=== PATIENT | female | born 1995 | race Caucasian/White ===

== ENCOUNTER 2016-10-27 18:47 | Emergency (ER) | payer MEDICARE, MEDICAID ==
[~2016-10-27] VITALS: Ht 175.3 cm; Wt 77.2 kg
[2016-10-27 18:56] VITALS: BP 109/73
[2016-10-27] MEDS ORDERED: KETOROLAC 30 MG/1 ML IM ONE (20:00)
[2016-10-27] MEDS ORDERED: CEFTRIAXONE 1,000 MG IM ONE (20:00)
[2016-10-27] MEDS ORDERED: LIDOCAINE 1%, 20ML ONE (20:32)
[2016-10-27] MEDS ORDERED: KETOROLAC 30 MG/1 ML ONE (20:32)
[2016-10-27] MEDS ORDERED: CEFTRIAXONE 1,000 MG ONE (20:32)
== END 2016-10-27 20:45 | disposition home or self-care (01) ==
LOC: ED 20:00
DX: O26.891 Other specified pregnancy related conditions, first trimester (principal); Z3A.11 11 weeks gestation of pregnancy; J02.0 Streptococcal pharyngitis
CPT/HCPCS: 87081; 87880; 96372; 99284; J0696; J1885

== ENCOUNTER 2017-03-29 20:19 | Outpatient (CLI) | payer MEDICARE, MEDICAID ==
[~2017-03-29] VITALS: Ht 167.6 cm; Wt 95.0 kg
[2017-03-29 20:48] LABS: DAU SCREEN DISCLAIMER
== END 2017-03-29 22:25 | disposition home or self-care (01) ==
LOC: LDOP 20:19
PROVIDERS: ATTEND Obstetrics & Gynecology
DX: O26.893 Other specified pregnancy related conditions, third trimester (principal); O62.9 Abnormality of forces of labor, unspecified; O99.513 Diseases of the respiratory system complicating pregnancy, third trimester; J45.909 Unspecified asthma, uncomplicated; R10.9 Unspecified abdominal pain; Z3A.31 31 weeks gestation of pregnancy
CPT/HCPCS: 59025; 80307; 81001; 87077; 87086; 87186; 99211; G0463; G0479

== ENCOUNTER 2017-11-25 19:12 | Emergency (ER) | payer MEDICARE, MEDICAID ==
[~2017-11-25] VITALS: Ht 167.6 cm; Wt 114.5 kg
[2017-11-25] MEDS ORDERED: KETOROLAC 30 MG/1 ML IM ONE (20:00)
[2017-11-25] MEDS ORDERED: KETOROLAC 30 MG/1 ML ONE (20:05)
[2017-11-25 20:16] VITALS: BP 119/79
== END 2017-11-25 20:19 | disposition home or self-care (01) ==
LOC: ED 20:13
DX: M25.561 Pain in right knee (principal)
CPT/HCPCS: 73564; 96372; 99284; J1885

== ENCOUNTER 2017-11-30 15:28 | Emergency (ER) | payer MEDICARE, MEDICAID ==
[~2017-11-30] VITALS: Ht 167.6 cm; Wt 114.5 kg
[2017-11-30 17:53] VITALS: BP 112/62
== END 2017-11-30 17:54 | disposition home or self-care (01) ==
LOC: ED 17:48
DX: J02.9 Acute pharyngitis, unspecified (principal); M54.9 Dorsalgia, unspecified; G89.29 Other chronic pain
CPT/HCPCS: 71046; 87081; 87880; 99285

== ENCOUNTER 2017-12-27 14:56 | Emergency (ER) | payer MEDICARE, MEDICAID ==
[~2017-12-27] VITALS: Ht 167.6 cm; Wt 111.0 kg
[2017-12-27 15:54] LABS: ALBUMIN 3.5 g/dL (3.4-5.0); ANION GAP 9 mmol/L (5-15); CALCIUM 8.5 mg/dL (8.5-10.1); CHLORIDE 107 mmol/L (98-107)
[2017-12-27 15:55] LABS: BASOPHILS # (AUTO) 0.03 x10^3/uL (0-0.1); BASOPHILS % (AUTO) 0 % (0-1); EOSINOPHILS # (AUTO) 0.05 x10^3/uL (0-0.4); EOSINOPHILS % (AUTO) 1 % (1-7); LYMPHOCYTES # (AUTO) 1.98 x10^3/uL (1-3.4); LYMPHOCYTES % (AUTO) 20 % (22-44); MD NO; MEAN CORPUSCULAR HGB CONC 33.7 g/dL (32.4-35.8); MEAN CORPUSCULAR VOLUME 89.1 fL (80-100); MEAN PLATELET VOLUME 8.2 fL (7.4-10.4); MONOCYTES # (AUTO) 0.55 x10^3/uL (0.2-0.8); MONOCYTES % (AUTO) 6 % (2-9); NEUTROPHILS # (AUTO) 7.12 x10^3/uL (1.8-6.8); NEUTROPHILS % (AUTO) 73 % (42-75); PLATELET COUNT 319 x10^3/uL (130-400); RED BLOOD COUNT 4.54 x10^6/uL (3.82-5.3); RED CELL DISTRIBUTION WIDTH 15.2 % (9.6-15.2)
[2017-12-27 16:01] LABS: ALANINE AMINOTRANSFERASE 26 U/L (12-78); ALKALINE PHOSPHATASE 82 U/L (45-117); BILIRUBIN,TOTAL 0.5 mg/dL (0.2-1.0); CREATININE 0.88 mg/dL (0.55-1.02); TOTAL PROTEIN 7.8 g/dL (6.4-8.2)
[2017-12-27 17:16] LABS: CULTURE INDICATED? YES; MICROSCOPIC INDICATED
[2017-12-27 17:32] VITALS: BP 107/58
== END 2017-12-27 17:34 | disposition home or self-care (01) ==
LOC: ED 17:16
DX: M25.571 Pain in right ankle and joints of right foot (principal); R10.84 Generalized abdominal pain
CPT/HCPCS: 36415; 80053; 81001; 83690; 84703; 85025; 87086; 99285

== ENCOUNTER 2018-06-20 10:20 | Emergency (ER) | payer MEDICAID ==
[~2018-06-20] VITALS: Ht 167.6 cm; Wt 100.9 kg
[2018-06-20] MEDS ORDERED: LURA20TA PO (11:57)
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
--- NOTE | 2018-06-20 11:59 | NUR ---
CALL LIGHT W/I REACH. SBAR RPT TO YAZMIN ANGELES
[2018-06-20 12:04] LABS: BASOPHILS # (AUTO) 0.02 x10^3/uL (0-0.1); BASOPHILS % (AUTO) 0 % (0-1); EOSINOPHILS # (AUTO) 0.02 x10^3/uL (0-0.4); EOSINOPHILS % (AUTO) 0 % (1-7); LYMPHOCYTES % (AUTO) 22 % (22-44); MD NO; MEAN CORPUSCULAR HEMOGLOBIN 31.3 pg (27.0-34.8); MEAN CORPUSCULAR HGB CONC 33.8 g/dL (32.4-35.8); MEAN CORPUSCULAR VOLUME 92.7 fL (80-100); MEAN PLATELET VOLUME 7.7 fL (7.4-10.4); MONOCYTES # (AUTO) 0.31 x10^3/uL (0.2-0.8); MONOCYTES % (AUTO) 5 % (2-9); NEUTROPHILS # (AUTO) 4.57 x10^3/uL (1.8-6.8); NEUTROPHILS % (AUTO) 72 % (42-75); PLATELET COUNT 252 x10^3/uL (130-400); RED BLOOD COUNT 3.68 x10^6/uL (3.82-5.3); RED CELL DISTRIBUTION WIDTH 13.8 % (9.6-15.2)
--- NOTE | 2018-06-20 12:04 | NUR ---
ASSUMED CARE OF PT, PT IS UNABLE TO PROVIDE UA. WOULD LIKE FLUIDS. PT WOULD NOT ATTEMPT TO GIVE UA UNTIL FLUIDS PROVIDED.
[2018-06-20 12:13] LABS: ALBUMIN 2.7 g/dL (3.4-5.0); ANION GAP 6 mmol/L (5-15); CALCIUM 8.4 mg/dL (8.5-10.1); CHLORIDE 108 mmol/L (98-107)
[2018-06-20 12:31] LABS: ALANINE AMINOTRANSFERASE 14 U/L (12-78); ALKALINE PHOSPHATASE 87 U/L (45-117); BILIRUBIN,TOTAL 0.4 mg/dL (0.2-1.0); CREATININE 0.62 mg/dL (0.55-1.02)
--- NOTE | 2018-06-20 12:58 | NUR ---
UA WALKED TO LAB
[2018-06-20 13:16] LABS: MICROSCOPIC AUTO
[2018-06-20 13:17] LABS: CULTURE INDICATED? YES
--- NOTE | 2018-06-20 14:06 | NUR ---
RHOGAM REQUESTED FROM RX.
[2018-06-20 14:32] VITALS: BP 134/84
--- NOTE | 2018-06-20 14:33 | NUR ---
Patient/Caregiver given discharge instructions and they have confirmed that they understand the instructions. Patient ambulatory with steady gait., PT TRANSPORTED TO LABOR AND DELIVER FOR OB CLEARANCE.
--- NOTE | 2018-06-20 14:33 | NUR ---
RHOGAM CHECKED WITH MANA ARCE
== END 2018-06-20 14:35 | disposition home or self-care (01) ==
LOC: ED 11:19
DX: O23.12 Infections of bladder in pregnancy, second trimester (principal); O99.512 Diseases of the respiratory system complicating pregnancy, second trimester; G89.29 Other chronic pain; E66.9 Obesity, unspecified; Z3A.20 20 weeks gestation of pregnancy
CPT/HCPCS: 36415; 71046; 80053; 81001; 83690; 84702; 85025; 85461; 86850; 86900; 87086; 93005; 99284; J2790

== ENCOUNTER 2018-06-20 14:44 | Outpatient (CLI) | payer MEDICAID ==
[~2018-06-20] VITALS: Ht 167.6 cm; Wt 104.2 kg
[~2018-06-20 14:44] MED LIST: LURA20TA PO
[2018-06-20 14:49] VITALS: BP 100/59
[2018-06-20 16:48] LABS: AMPHETAMINE SCREEN, URINE Positive (Negative); BARBITURATE SCREEN, URINE Negative (Negative); BENZODIAZEPINE SCREEN, URINE Negative (Negative); CANNABINOID SCREEN, URINE Negative (Negative); COCAINE SCREEN, URINE Negative (Negative); METHADONE SCREEN, URINE Negative (Negative); OPIATE SCREEN, URINE Negative (Negative)
== END 2018-06-20 17:15 | disposition home or self-care (01) ==
LOC: LDOP 14:44
PROVIDERS: ATTEND Obstetrics & Gynecology
DX: O32.1XX0 Maternal care for breech presentation, not applicable or unspecified (principal); O26.892 Other specified pregnancy related conditions, second trimester; R10.9 Unspecified abdominal pain; Z3A.25 25 weeks gestation of pregnancy
CPT/HCPCS: 36415; 59025; 76805; 80307; 82950; 99211; G0463

== ENCOUNTER 2018-08-09 06:08 | Outpatient (CLI) | payer MEDICAID ==
[~2018-08-09] VITALS: Ht 167.6 cm; Wt 104.5 kg
[~2018-08-09 06:08] MED LIST changes: +CIPR500T87 PO; +METR500T PO; +ONDA8TAB9 PO
[2018-08-09 07:09] LABS: AMPHETAMINE SCREEN, URINE Positive (Negative); BARBITURATE SCREEN, URINE Negative (Negative); BENZODIAZEPINE SCREEN, URINE Negative (Negative); CANNABINOID SCREEN, URINE Negative (Negative); COCAINE SCREEN, URINE Negative (Negative); METHADONE SCREEN, URINE Negative (Negative); OPIATE SCREEN, URINE Negative (Negative)
[2018-08-09 07:22] VITALS: BP 126/71
[2018-08-09 07:23] LABS: MICROSCOPIC INDICATED
[2018-08-09] MEDS ORDERED: NITR100C56 PO (08:23)
== END 2018-08-09 08:44 | disposition home or self-care (01) ==
LOC: LDOP 06:08
PROVIDERS: ATTEND Obstetrics & Gynecology Female Pelvic Medicine and Reconstructive Surgery
DX: O26.893 Other specified pregnancy related conditions, third trimester (principal); R10.9 Unspecified abdominal pain; M54.9 Dorsalgia, unspecified; Z3A.32 32 weeks gestation of pregnancy
CPT/HCPCS: 59025; 80307; 81001; 87086; 99211; G0463

== ENCOUNTER 2018-08-24 20:50 | Emergency (ER) | payer MEDICAID ==
[~2018-08-24] VITALS: Ht 170.2 cm; Wt 103.9 kg
[~2018-08-24 20:50] MED LIST changes: +NITR100C56 PO
--- NOTE | 2018-08-24 20:54 | NUR ---
NOT IN LOBBY WHEN CALLED FOR TRIAGE
[2018-08-24 20:55] VITALS: BP 117/79
--- NOTE | 2018-08-24 21:00 | NUR ---
KIER OPERATOR: L&D AWARE OF PT
--- NOTE | 2018-08-24 21:29 | NUR ---
L&D CALLED FOR FHT.
--- NOTE | 2018-08-24 21:40 | NUR ---
HR 140
== END 2018-08-24 22:57 | disposition home or self-care (01) ==
LOC: ED 22:43
DX: M25.561 Pain in right knee (principal); G40.909 Epilepsy, unspecified, not intractable, without status epilepticus; M54.9 Dorsalgia, unspecified; G89.29 Other chronic pain; Z87.891 Personal history of nicotine dependence
CPT/HCPCS: 99283

== ENCOUNTER 2018-09-23 22:59 | Inpatient (IN) | payer MEDICAID ==
[~2018-09-23] VITALS: Ht 167.6 cm; Wt 100.5 kg
[2018-09-23 23:08] VITALS: BP 122/73
[2018-09-23 23:24] LABS: AMPHETAMINE SCREEN, URINE Negative (Negative); BARBITURATE SCREEN, URINE Negative (Negative); BENZODIAZEPINE SCREEN, URINE Negative (Negative); CANNABINOID SCREEN, URINE Negative (Negative); COCAINE SCREEN, URINE Negative (Negative); METHADONE SCREEN, URINE Negative (Negative); OPIATE SCREEN, URINE Negative (Negative)
[2018-09-24] MEDS ORDERED: D5%-LACTATED RINGERS 1,000 ML IV SCH (00:38)
[2018-09-24] MEDS ORDERED: OXYTOCIN 30U/ 0.9% NaCL 500ML 500 ML IV ONE ×2 (00:38→01:16)
[2018-09-24] MEDS ORDERED: LIDOCAINE 1%, 20ML ONE (00:47)
[2018-09-24] MEDS ORDERED: SODIUM CHLORIDE FLUSH 10ML SYR IVF PRN (01:00)
[2018-09-24] MEDS ORDERED: ONDANSETRON 2MG/ML, 2ML IVPush PRN (01:00)
[2018-09-24] MEDS ORDERED: FENTANYL PF 100 MCG/2ML IVPush PRN (01:00)
[2018-09-24] MEDS ORDERED: CALCIUM CARBONATE 500 MG TAB.CHEW PO PRN ×2 (01:00→09:30)
[2018-09-24] MEDS ORDERED: SODIUM CITRATE/CITRIC ACID 15 ML UDC PO PRN (01:00)
[2018-09-24] MEDS ORDERED: ALUMINUM/MAG/SIMETHICONE 30 ML UDC PO PRN (01:00)
[2018-09-24] MEDS ORDERED: METOCLOPRAMIDE 5 MG/ML, 2ML IVPush PRN (01:00)
[2018-09-24] MEDS ORDERED: FENTANYL PF 100 MCG/2ML IV PRN (01:00)
[2018-09-24] MEDS ORDERED: FENTANYL/BUPIV./NS/PF 250 ML EPIDCONT SCH ×2 (01:22→04:25)
[2018-09-24 01:26] LABS: BASOPHILS # (AUTO) 0.03 x10^3/uL (0-0.1); BASOPHILS % (AUTO) 0 % (0-1); EOSINOPHILS # (AUTO) 0.01 x10^3/uL (0-0.4); EOSINOPHILS % (AUTO) 0 % (1-7); LYMPHOCYTES # (AUTO) 1.97 x10^3/uL (1-3.4); LYMPHOCYTES % (AUTO) 25 % (22-44); MD NO; MEAN CORPUSCULAR HEMOGLOBIN 29.4 pg (27.0-34.8); MEAN CORPUSCULAR HGB CONC 33.2 g/dL (32.4-35.8); MEAN CORPUSCULAR VOLUME 88.7 fL (80-100); MEAN PLATELET VOLUME 8.1 fL (7.4-10.4); MONOCYTES # (AUTO) 0.54 x10^3/uL (0.2-0.8); MONOCYTES % (AUTO) 7 % (2-9); NEUTROPHILS # (AUTO) 5.32 x10^3/uL (1.8-6.8); NEUTROPHILS % (AUTO) 68 % (42-75); PLATELET COUNT 247 x10^3/uL (130-400); RED BLOOD COUNT 3.44 x10^6/uL (3.82-5.3); RED CELL DISTRIBUTION WIDTH 14.3 % (9.6-15.2)
[2018-09-24] MEDS ORDERED: FENTANYL/BUPIV./NS/PF 0 ML EPIDCONT ONE (01:27)
[2018-09-24] MEDS ORDERED: BUPIVACAINE 0.25% ONE (01:51)
[2018-09-24] MEDS ORDERED: FENTANYL PF 500 MCG, BUPIVACAINE/PF 0.5%, 30ML 62.5 ML in SODIUM CHLORIDE 0.9% 177.5 ML EPIDCONT SCH (02:00)
[2018-09-24] MEDS: LACTATED RINGERS 1,000 ML IV SCH ×2 (02:05→08:09)
[2018-09-24 02:18] LABS: CLUE CELLS NONE SEEN (NONE SEEN); WET PREP WBCS NONE SEEN (FEW)
[2018-09-24] MEDS ORDERED: OXYTOCIN 30U/ 0.9% NaCL 500ML 500 ML ONE ×2 (03:23→11:12)
[2018-09-24] MEDS ORDERED: LACTATED RINGERS 1,000 ML IV SCH (04:25)
[2018-09-24] MEDS ORDERED: EPHEDRINE 50 MG/ML, 1ML IVPush PRN (04:30)
[2018-09-24] MEDS ORDERED: LACTATED RINGERS 1,000 ML IVBOLUS PRN (04:30)
[2018-09-24] MEDS ORDERED: MAGNESIUM HYDROXIDE 8%, 30ML UDC PO PRN (09:30)
[2018-09-24] MEDS ORDERED: METHYLERGONOVINE 0.2 MG/ML IM PRN (09:30)
[2018-09-24] MEDS ORDERED: ONDANSETRON 2MG/ML, 2ML IV PRN (09:30)
[2018-09-24] MEDS ORDERED: CARBOPROST TROMETHAMINE 250 MCG/ML, 1ML IM PRN (09:30)
[2018-09-24] MEDS ORDERED: OXYcodone/APAP 5/325MG TABLET PO PRN ×2 (09:30)
[2018-09-24] MEDS ORDERED: ACETAMINOPHEN 325 MG TABLET PO PRN ×3 (09:30)
[2018-09-24] MEDS ORDERED: MISOPROSTOL 200 MCG TABLET PR PRN (09:30)
[2018-09-24] MEDS ORDERED: DIPH,PERTUSS(ACELL),TET VAC/PF NC IM-VACC PRN (09:30)
[2018-09-24] MEDS ORDERED: GLYCERIN ADULT SUPP PR PRN (09:30)
[2018-09-24] MEDS ORDERED: BISACODYL 10 MG SUPP PR PRN (09:30)
[2018-09-24] MEDS ORDERED: RHOGAM FROM BLOOD BANK 1 NOTE EA IM/IV ONE (09:30)
[2018-09-24] MEDS ORDERED: METOCLOPRAMIDE 5 MG/ML, 2ML IV PRN (09:30)
[2018-09-24] MEDS ORDERED: MEASLES,MUMPS&RUBELLA VACC/PF 0.5 ML SQ-VACC PRN (09:30)
[2018-09-24] MEDS ORDERED: IBUPROFEN 600 MG TABLET ONE (09:45)
[2018-09-24] MEDS: IBUPROFEN 600 MG TABLET PO PRN (09:50)
[2018-09-24] MEDS: OXYTOCIN 30U/ 0.9% NaCL 500ML 500 ML IV SCH ×2 (11:16→19:07)
[2018-09-24 13:40] VITALS: BP 104/70
[2018-09-24 17:24] LABS: BASOPHILS # (AUTO) 0.02 x10^3/uL (0-0.1); BASOPHILS % (AUTO) 0 % (0-1); EOSINOPHILS # (AUTO) 0.01 x10^3/uL (0-0.4); EOSINOPHILS % (AUTO) 0 % (1-7); LYMPHOCYTES # (AUTO) 1.61 x10^3/uL (1-3.4); LYMPHOCYTES % (AUTO) 22 % (22-44); MD NO; MEAN CORPUSCULAR HEMOGLOBIN 30.3 pg (27.0-34.8); MEAN CORPUSCULAR HGB CONC 33.9 g/dL (32.4-35.8); MEAN CORPUSCULAR VOLUME 89.4 fL (80-100); MEAN PLATELET VOLUME 8.3 fL (7.4-10.4); MONOCYTES % (AUTO) 6 % (2-9); NEUTROPHILS % (AUTO) 72 % (42-75); PLATELET COUNT 196 x10^3/uL (130-400); RED BLOOD COUNT 3.14 x10^6/uL (3.82-5.3); RED CELL DISTRIBUTION WIDTH 14.2 % (9.6-15.2)
[2018-09-24 19:35] VITALS: BP 108/74
[2018-09-25] VITALS: BP_SYST 111; BP_SYST 112; BP_DIAS 75; BP_DIAS 78
[2018-09-25] MEDS: LACTATED RINGERS 1,000 ML IV SCH ×4 (01:16→20:00)
[2018-09-25] MEDS: OXYTOCIN 30U/ 0.9% NaCL 500ML 500 ML IV SCH ×3 (05:07→20:00)
[2018-09-25 05:45] VITALS: BP 112/73
[2018-09-25] MEDS: IBUPROFEN 600 MG TABLET PO PRN ×3 (06:04→22:23)
[2018-09-25] MEDS: DOCUSATE 100 MG CAPSULE PO PRN (07:49)
[2018-09-25] MEDS: PRENATAL VIT/IRON/FA 1 EACH TABLET PO SCH (07:49)
[2018-09-25 07:55] VITALS: BP 121/81
[2018-09-25 19:42] VITALS: BP 100/67
[2018-09-26 07:50] VITALS: BP 111/79
[2018-09-26] MEDS: PRENATAL VIT/IRON/FA 1 EACH TABLET PO SCH (08:25)
[2018-09-26] MEDS: DOCUSATE 100 MG CAPSULE PO PRN (08:25)
[2018-09-26] MEDS: LACTATED RINGERS 1,000 ML IV SCH (09:16)
[2018-09-26] MEDS: OXYTOCIN 30U/ 0.9% NaCL 500ML 500 ML IV SCH (10:00)
[2018-09-26] MEDS ORDERED: OXYC-302 PO (11:19)
[2018-09-26] MEDS ORDERED: IBUP-1222 PO (11:19)
== END 2018-09-26 16:15 | disposition home or self-care (01) | DRG 806 ==
LOC: LDOP 22:59 → LDIP 09-24 00:41 → 2NW 09-24 13:03
PROVIDERS: ADMIT Obstetrics & Gynecology; ATTEND Obstetrics & Gynecology
PROC: 10E0XZZ Delivery of Products of Conception, External Approach (ICD-10-PCS; principal; 2018-09-24)
PROC: 0KQM0ZZ Repair Perineum Muscle, Open Approach (ICD-10-PCS; 2018-09-24)
PROC: 3E0R3BZ Introduction of Anesthetic Agent into Spinal Canal, Percutaneous Approach (ICD-10-PCS; 2018-09-24)
PROC: 00HU33Z Insertion of Infusion Device into Spinal Canal, Percutaneous Approach (ICD-10-PCS; 2018-09-24)
DX: O98.32 Other infections with a predominantly sexual mode of transmission complicating childbirth (principal); O26.62 Liver and biliary tract disorders in childbirth; Z37.0 Single live birth; O98.12 Syphilis complicating childbirth; O69.81X0 Labor and delivery complicated by cord around neck, without compression, not applicable or unspecified; A59.9 Trichomoniasis, unspecified; D64.9 Anemia, unspecified; O70.1 Second degree perineal laceration during delivery; F31.9 Bipolar disorder, unspecified; F43.10 Post-traumatic stress disorder, unspecified; O99.344 Other mental disorders complicating childbirth; K75.9 Inflammatory liver disease, unspecified; O99.02 Anemia complicating childbirth; Z3A.39 39 weeks gestation of pregnancy; Z72.0 Tobacco use; Z88.0 Allergy status to penicillin
CPT/HCPCS: 36415; 87806; J2790; 80307; 82947; 85025; 85460; 85461; 86803; 86850; 86900; 87081; 87210; 87491; 87591; 87808; G0378; G0475; J2590; J7120

== ENCOUNTER 2019-01-20 07:44 | Emergency (ER) | payer MEDICAID, OTHER ==
[~2019-01-20] VITALS: Ht 167.6 cm; Wt 88.0 kg
[2019-01-20 10:25] VITALS: BP 118/60
== END 2019-01-20 10:31 | disposition home or self-care (01) ==
LOC: ED 10:29
DX: S92.355A Nondisplaced fracture of fifth metatarsal bone, left foot, initial encounter for closed fracture (principal); X50.1XXA Overexertion from prolonged static or awkward postures, initial encounter; Y93.89 Activity, other specified; Y92.410 Unspecified street and highway as the place of occurrence of the external cause; Y99.8 Other external cause status
CPT/HCPCS: 29515; 99283

== ENCOUNTER 2019-04-29 06:49 | Emergency (ER) | payer MEDICAID ==
[~2019-04-29] VITALS: Ht 167.6 cm; Wt 93.6 kg
[~2019-04-29 06:49] MED LIST changes: +IBUP-1222 PO; +OXYC-302 PO
[2019-04-29 06:51] VITALS: BP 117/66
--- NOTE | 2019-04-29 07:12 | NUR ---
PT STATES LESION ON LABIA. PA EVAL AND TO BE DISCHARGED.
== END 2019-04-29 07:23 | disposition home or self-care (01) ==
LOC: ED 07:17
DX: B00.1 Herpesviral vesicular dermatitis (principal); L73.9 Follicular disorder, unspecified; F17.210 Nicotine dependence, cigarettes, uncomplicated; E66.9 Obesity, unspecified
CPT/HCPCS: 99283

== ENCOUNTER 2019-07-10 17:24 | Emergency (ER) | payer MEDICAID ==
[~2019-07-10] VITALS: Ht 167.6 cm; Wt 84.0 kg
--- NOTE | 2019-07-10 17:37 | NUR ---
GASPER. REPORT RECEIVED FROM EMS. PT HAD SEIZURE WITNESSED BY BF. NO TRAUMA/HIT ON HEAD. 2 VERSED GIVEN MOTOR SETTER THEN PT'S AOX4. RESPS EVEN AND UNLABORED. ALL MONITORS IN PLACE. CALL LIGHT WITHIN REACH. EKG DONE AT BEDSIDE BY EMT AT THIS TIME.
--- NOTE | 2019-07-10 18:35 | NUR ---
PT STATES" I CA'T PEE NOW." PT AWARES OF UA. UA CUP IN ROOM.
[2019-07-10 18:57] LABS: ALBUMIN 3.4 g/dL (3.4-5.0); ANION GAP 4 mmol/L (5-15); CALCIUM 9.2 mg/dL (8.5-10.1); CHLORIDE 109 mmol/L (98-107); CREATININE 0.83 mg/dL (0.55-1.02)
--- NOTE | 2019-07-10 18:57 | NUR ---
REPORT GIVEN TO JESUS ARCE.
[2019-07-10] MEDS ORDERED: LORazepam 2 MG/ML, 1ML ONE (19:32)
--- NOTE | 2019-07-10 19:38 | NUR ---
FAMILY CAME OUT TO RN STATION C/O PT. HAVING ANOTHER SEZIURE. SMALL ROCKING MOVEMENTS NOTED. HR ELEVATED TO 125 FROM 80'S DURING SHIFT REPORT. DR. DARBY TO BS FOR EVAL. 1MG ATIVAN ADMIN PER DR. DARBY VERBAL ORDER. PT. RESPONSIVE AND LOOKS AT STAFF WHEN NAME IS CALLED; IMMEDIATLY PRIROR TO ATIVAN PT. STOPPED ROCKING AND HR DOWN TO 110'S. ALL MONITORS REMAIN IN PLACE. SEZIURE PRECAUTIONS REMAIN IN PLACE. ALL SAFETY MEASURES MAINTAINED.
[2019-07-10] MEDS ORDERED: LORazepam 2 MG/ML, 1ML IVPush ONE (20:00)
--- NOTE | 2019-07-10 20:27 | NUR ---
JENNIFER FREDERICK UA COLLECTED PT. HAS BEEN UNABLE TO PROVIDE SAMPLE. PT. DROWSY BUT ABLE TO COMMUNICATE WITH STAFF. FAMILY/FRIENDS AT FOR SUPPORT. ALL MONTIORS REMAIN IN PLACE. ALL SAFETY MEASURES OBSERVED.
[2019-07-10 20:49] LABS: HCG UR SG 1.024 (1.003-1.030); MICROSCOPIC NOT IND
[2019-07-10 20:52] LABS: CULTURE INDICATED? NO
[2019-07-10 21:00] LABS: AMPHETAMINE SCREEN, URINE Negative (Negative); BARBITURATE SCREEN, URINE Positive (Negative); BENZODIAZEPINE SCREEN, URINE Positive (Negative); COCAINE SCREEN, URINE Negative (Negative); METHADONE SCREEN, URINE Negative (Negative); OPIATE SCREEN, URINE Negative (Negative)
[2019-07-10 21:01] LABS: CANNABINOID SCREEN, URINE Positive (Negative)
[2019-07-10] MEDS ORDERED: SODIUM CHLORIDE 0.9% 1,000ML IVBOLUS ONE (21:30)
--- NOTE | 2019-07-10 21:30 | NUR ---
CT DELAY, LAB DRAW.
[2019-07-10 21:43] LABS: BASOPHILS # (AUTO) 0.01 x10^3/uL (0-0.1); BASOPHILS % (AUTO) 0 % (0-1); EOSINOPHILS # (AUTO) 0.01 x10^3/uL (0-0.4); EOSINOPHILS % (AUTO) 0 % (1-7); LYMPHOCYTES # (AUTO) 1.25 x10^3/uL (1-3.4); LYMPHOCYTES % (AUTO) 18 % (22-44); MD NO; MEAN CORPUSCULAR HEMOGLOBIN 29.8 pg (27.0-34.8); MEAN CORPUSCULAR HGB CONC 33.7 g/dL (32.4-35.8); MEAN CORPUSCULAR VOLUME 88.2 fL (80-100); MEAN PLATELET VOLUME 8.1 fL (7.4-10.4); MONOCYTES # (AUTO) 0.45 x10^3/uL (0.2-0.8); MONOCYTES % (AUTO) 6 % (2-9); NEUTROPHILS # (AUTO) 5.38 x10^3/uL (1.8-6.8); NEUTROPHILS % (AUTO) 76 % (42-75); PLATELET COUNT 262 x10^3/uL (130-400); RED CELL DISTRIBUTION WIDTH 14.4 % (9.6-15.2)
--- NOTE | 2019-07-10 22:02 | NUR ---
Pt awake, alert, and eating at bedside. IVF started.
[2019-07-10] MEDS ORDERED: ACETAMINOPHEN 500 MG TABLET PO ONE (22:30)
[2019-07-10] MEDS ORDERED: ACETAMINOPHEN 500 MG TABLET ONE (22:58)
[2019-07-10 23:09] VITALS: BP 103/65
== END 2019-07-10 23:21 | disposition home or self-care (01) ==
LOC: ED 18:31
DX: G40.909 Epilepsy, unspecified, not intractable, without status epilepticus (principal); R55 Syncope and collapse; Z88.0 Allergy status to penicillin
CPT/HCPCS: 36415; 70450; 80048; 80307; 81003; 81025; 82040; 83605; 85025; 87040; 93005; 96361; 96374; 99284; J2060; J7030

== ENCOUNTER 2019-07-22 11:45 | Emergency (ER) | payer MEDICAID ==
[~2019-07-22] VITALS: Ht 167.6 cm; Wt 80.0 kg
--- NOTE | 2019-07-22 11:47 | NUR ---
PATIENT BROUGHT IN BY [facility] FOR CHIEF COMPLAINT OF POSSIBLE WITNESSED SEIZURE. NO LOC REPORTED, NEURO STATUS INTACT. PT DENIES SOB, CP, N/V, RECENT TRAUMA.
[2019-07-22] MEDS ORDERED: LEVE500T53 PO (11:55)
[2019-07-22 12:37] LABS: BASOPHILS # (AUTO) 0.03 x10^3/uL (0-0.1); BASOPHILS % (AUTO) 0 % (0-1); EOSINOPHILS # (AUTO) 0.03 x10^3/uL (0-0.4); EOSINOPHILS % (AUTO) 0 % (1-7); LYMPHOCYTES # (AUTO) 2.15 x10^3/uL (1-3.4); LYMPHOCYTES % (AUTO) 26 % (22-44); MD NO; MEAN CORPUSCULAR HEMOGLOBIN 29.3 pg (27.0-34.8); MEAN CORPUSCULAR HGB CONC 33.2 g/dL (32.4-35.8); MEAN CORPUSCULAR VOLUME 88.2 fL (80-100); MEAN PLATELET VOLUME 7.4 fL (7.4-10.4); MONOCYTES % (AUTO) 5 % (2-9); NEUTROPHILS # (AUTO) 5.72 x10^3/uL (1.8-6.8); NEUTROPHILS % (AUTO) 69 % (42-75); PLATELET COUNT 338 x10^3/uL (130-400); RED BLOOD COUNT 4.53 x10^6/uL (3.82-5.3); RED CELL DISTRIBUTION WIDTH 13.7 % (9.6-15.2)
[2019-07-22 12:39] LABS: MICROSCOPIC INDICATED
[2019-07-22 12:41] LABS: CULTURE INDICATED? YES
[2019-07-22 12:46] LABS: ALBUMIN 3.2 g/dL (3.4-5.0); ANION GAP 7 mmol/L (5-15); CALCIUM 8.7 mg/dL (8.5-10.1); CHLORIDE 107 mmol/L (98-107)
[2019-07-22 12:51] LABS: ALANINE AMINOTRANSFERASE 19 U/L (12-78); ALKALINE PHOSPHATASE 86 U/L (45-117); BILIRUBIN,TOTAL 0.4 mg/dL (0.2-1.0); TOTAL PROTEIN 7.5 g/dL (6.4-8.2)
--- NOTE | 2019-07-22 13:02 | NUR ---
PT SHAKING, NOTIFIED DR. BARR
--- NOTE | 2019-07-22 13:02 | NUR ---
RECEIVED REPORT FROM ARNALDO PLAN OF CARE DISCUSSED
--- NOTE | 2019-07-22 13:04 | NUR ---
PT AWAKE, ANSWERING QUESTIONS APPROPRIATLY. SEIZURE PADS ON SIDE RAILS
--- NOTE | 2019-07-22 13:36 | NUR ---
Break RN: Provided minimal assist to BS commode. Back in bed after, cardiac, NIBP, SPO2 monitors & sz precautions IP.
[2019-07-22 14:02] VITALS: BP 118/75
--- NOTE | 2019-07-22 14:02 | NUR ---
Patient/Caregiver given discharge instructions and they have confirmed that they understand the instructions. Patient ambulatory with steady gait.
== END 2019-07-22 14:04 | disposition home or self-care (01) ==
LOC: ED 12:39
DX: G40.909 Epilepsy, unspecified, not intractable, without status epilepticus (principal); G89.29 Other chronic pain; J45.909 Unspecified asthma, uncomplicated; R51 Headache
CPT/HCPCS: 36415; 80053; 81001; 84703; 85025; 87086; 99283

== ENCOUNTER 2019-07-27 08:30 | Emergency (ER) | payer MEDICAID ==
[~2019-07-27] VITALS: Ht 167.6 cm; Wt 87.5 kg
[~2019-07-27 08:30] MED LIST changes: +LEVE500T53 PO
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
[2019-07-27 09:11] LABS: BASOPHILS # (AUTO) 0.03 x10^3/uL (0-0.1); BASOPHILS % (AUTO) 1 % (0-1); EOSINOPHILS # (AUTO) 0.03 x10^3/uL (0-0.4); EOSINOPHILS % (AUTO) 1 % (1-7); LYMPHOCYTES % (AUTO) 29 % (22-44); MD NO; MEAN CORPUSCULAR HEMOGLOBIN 29.7 pg (27.0-34.8); MEAN CORPUSCULAR HGB CONC 33.7 g/dL (32.4-35.8); MEAN CORPUSCULAR VOLUME 88.2 fL (80-100); MEAN PLATELET VOLUME 7.4 fL (7.4-10.4); MONOCYTES # (AUTO) 0.39 x10^3/uL (0.2-0.8); MONOCYTES % (AUTO) 8 % (2-9); NEUTROPHILS # (AUTO) 3.29 x10^3/uL (1.8-6.8); NEUTROPHILS % (AUTO) 63 % (42-75); PLATELET COUNT 268 x10^3/uL (130-400); RED BLOOD COUNT 4.34 x10^6/uL (3.82-5.3); RED CELL DISTRIBUTION WIDTH 13.5 % (9.6-15.2)
[2019-07-27 09:12] LABS: ANION GAP 4 mmol/L (5-15); CALCIUM 8.6 mg/dL (8.5-10.1); CHLORIDE 110 mmol/L (98-107)
[2019-07-27 10:20] VITALS: BP 99/65
== END 2019-07-27 10:28 | disposition home or self-care (01) ==
LOC: ED 09:20
DX: G40.309 Generalized idiopathic epilepsy and epileptic syndromes, not intractable, without status epilepticus (principal)
CPT/HCPCS: 36415; 80048; 84703; 85025; 93005; 99284

== ENCOUNTER 2019-07-28 20:07 | Emergency (ER) | payer MEDICAID ==
[~2019-07-28] VITALS: Ht 167.6 cm; Wt 85.0 kg
[2019-07-28 20:19] VITALS: BP 115/71
== END 2019-07-28 22:19 | disposition home or self-care (01) ==
LOC: ED 20:52
DX: J45.31 Mild persistent asthma with (acute) exacerbation (principal); G40.909 Epilepsy, unspecified, not intractable, without status epilepticus; G89.29 Other chronic pain; R06.02 Shortness of breath
CPT/HCPCS: 93005; 99283

== ENCOUNTER 2020-01-15 00:58 | Emergency (ER) | payer MEDICAID ==
[~2020-01-15] VITALS: Ht 167.6 cm; Wt 100.0 kg
--- NOTE | 2020-01-15 01:24 | NUR ---
PT SITTING IN BED, CONNECTED TO BP AND 02 MONITORS. NO SIGNS OF ACUTE DISTRESS. WILL CONTINUE TO MONITOR.
[2020-01-15 01:33] LABS: BASOPHILS # (AUTO) 0.03 x10^3/uL (0-0.1); BASOPHILS % (AUTO) 0 % (0-1); EOSINOPHILS # (AUTO) 0.01 x10^3/uL (0-0.4); EOSINOPHILS % (AUTO) 0 % (1-7); LYMPHOCYTES # (AUTO) 1.83 x10^3/uL (1-3.4); LYMPHOCYTES % (AUTO) 21 % (22-44); MD NO; MEAN PLATELET VOLUME 8.5 fL (7.4-10.4); MONOCYTES # (AUTO) 0.55 x10^3/uL (0.2-0.8); MONOCYTES % (AUTO) 6 % (2-9); NEUTROPHILS # (AUTO) 6.38 x10^3/uL (1.8-6.8); NEUTROPHILS % (AUTO) 72 % (42-75); PLATELET COUNT 235 x10^3/uL (130-400); RED BLOOD COUNT 4.41 x10^6/uL (3.82-5.3); RED CELL DISTRIBUTION WIDTH 14.3 % (9.6-15.2)
[2020-01-15 01:43] LABS: ALBUMIN 3.3 g/dL (3.4-5.0); ANION GAP 4 mmol/L (5-15); CALCIUM 8.1 mg/dL (8.5-10.1); CHLORIDE 112 mmol/L (98-107)
--- NOTE | 2020-01-15 02:07 | NUR ---
PT CONDITION UNCHANGED.
[2020-01-15] MEDS ORDERED: IBUPROFEN 800 MG TABLET ONE (02:37)
[2020-01-15 02:38] VITALS: BP 100/64
[2020-01-15] MEDS ORDERED: IBUPROFEN 800 MG TABLET PO ONE (03:00)
== END 2020-01-15 02:57 | disposition home or self-care (01) ==
LOC: ED 02:50
DX: M79.10 Myalgia, unspecified site (principal); R53.1 Weakness; R05 Cough; R07.89 Other chest pain; J45.909 Unspecified asthma, uncomplicated; G89.29 Other chronic pain; G40.909 Epilepsy, unspecified, not intractable, without status epilepticus; M17.10 Unilateral primary osteoarthritis, unspecified knee
CPT/HCPCS: 36415; 71045; 80048; 82040; 84703; 85025; 99284

== ENCOUNTER 2020-02-23 17:58 | Emergency (ER) | payer MEDICAID ==
[~2020-02-23] VITALS: Ht 167.6 cm; Wt 101.6 kg
[2020-02-23 18:42] LABS: ALANINE AMINOTRANSFERASE 14 U/L (12-78); ALBUMIN 3.4 g/dL (3.4-5.0); ANION GAP 5 mmol/L (5-15); CALCIUM 8.7 mg/dL (8.5-10.1); CHLORIDE 108 mmol/L (98-107); CREATININE 0.86 mg/dL (0.55-1.02)
[2020-02-23 18:45] LABS: BASOPHILS # (AUTO) 0.01 x10^3/uL (0-0.1); BASOPHILS % (AUTO) 0 % (0-1); EOSINOPHILS # (AUTO) 0.04 x10^3/uL (0-0.4); EOSINOPHILS % (AUTO) 1 % (1-7); LYMPHOCYTES % (AUTO) 31 % (22-44); MD NO; MEAN CORPUSCULAR HEMOGLOBIN 30.8 pg (27.0-34.8); MEAN CORPUSCULAR HGB CONC 33.2 g/dL (32.4-35.8); MEAN CORPUSCULAR VOLUME 92.8 fL (80-100); MEAN PLATELET VOLUME 7.6 fL (7.4-10.4); MONOCYTES % (AUTO) 6 % (2-9); NEUTROPHILS % (AUTO) 63 % (42-75); PLATELET COUNT 280 x10^3/uL (130-400); RED BLOOD COUNT 4.36 x10^6/uL (3.82-5.3); RED CELL DISTRIBUTION WIDTH 14.3 % (9.6-15.2)
[2020-02-23 18:46] LABS: ALKALINE PHOSPHATASE 91 U/L (45-117); BILIRUBIN,TOTAL 0.2 mg/dL (0.2-1.0); TOTAL PROTEIN 7.3 g/dL (6.4-8.2)
--- NOTE | 2020-02-23 19:06 | NUR ---
pt here for nausea, weak/dizzy/paleness started today no D/V. ua walked to lab, bloodwork pending. vss. call bailey. as
[2020-02-23 19:08] LABS: MICROSCOPIC INDICATED
[2020-02-23 19:24] VITALS: BP 118/83
== END 2020-02-23 20:38 | disposition home or self-care (01) ==
LOC: ED 18:43
DX: N39.0 Urinary tract infection, site not specified (principal); J45.909 Unspecified asthma, uncomplicated; G89.29 Other chronic pain
CPT/HCPCS: 36415; 80053; 81001; 84703; 85025; 99283

== ENCOUNTER 2020-04-27 23:52 | Emergency (ER) | payer SELFPAY ==
[~2020-04-27] VITALS: Ht 167.6 cm; Wt 107.6 kg
[2020-04-27 23:59] VITALS: BP 117/78
[2020-04-28] MEDS ORDERED: ACETAMINOPHEN 500 MG TABLET ONE (00:53)
[2020-04-28] MEDS ORDERED: ACETAMINOPHEN 500 MG TABLET PO ONE (01:00)
== END 2020-04-28 01:37 | disposition home or self-care (01) ==
LOC: ED 04-28 00:52
DX: M79.10 Myalgia, unspecified site (principal); Z72.9 Problem related to lifestyle, unspecified; G40.909 Epilepsy, unspecified, not intractable, without status epilepticus; J45.909 Unspecified asthma, uncomplicated; G89.29 Other chronic pain
CPT/HCPCS: 99282

== ENCOUNTER 2020-12-06 17:05 | Emergency (ER) | payer MEDICAID ==
[~2020-12-06] VITALS: Ht 167.6 cm; Wt 112.3 kg
[~2020-12-06 17:05] MED LIST changes: -OXYC-302 PO; +OXYC1TAB14 PO
[2020-12-06 17:13] VITALS: BP 142/86
== END 2020-12-06 18:10 | disposition home or self-care (01) ==
LOC: ED 18:00
DX: K02.9 Dental caries, unspecified (principal); R59.1 Generalized enlarged lymph nodes; G89.29 Other chronic pain; J45.909 Unspecified asthma, uncomplicated; M19.90 Unspecified osteoarthritis, unspecified site
CPT/HCPCS: 99283

== ENCOUNTER 2021-02-05 13:03 | Emergency (ER) | payer MEDICAID ==
[~2021-02-05] VITALS: Ht 167.6 cm; Wt 116.1 kg
[~2021-02-05 13:03] MED LIST changes: +OXYC1TAB12 PO; -OXYC1TAB14 PO
[2021-02-05 14:28] LABS: BASOPHILS % (AUTO) 1 % (0-1); EOSINOPHILS % (AUTO) 0 % (1-7); LYMPHOCYTES % (AUTO) 21 % (22-44); MEAN CORPUSCULAR HEMOGLOBIN 31.5 pg (27.0-34.8); MEAN CORPUSCULAR HGB CONC 34.8 g/dL (32.4-35.8); MONOCYTES % (AUTO) 6 % (2-9); NEUTROPHILS % (AUTO) 72 % (42-75); PLATELET COUNT 241 x10^3/uL (130-400); RED BLOOD COUNT 4.16 x10^6/uL (3.82-5.3); RED CELL DISTRIBUTION WIDTH 13.9 % (9.6-15.2)
[2021-02-05 14:39] LABS: ALBUMIN 2.8 g/dL (3.4-5.0); ANION GAP 6 mmol/L (5-15); CALCIUM 8.3 mg/dL (8.5-10.1); CHLORIDE 105 mmol/L (98-107)
--- NOTE | 2021-02-05 14:47 | NUR ---
EXAMINATION SCORER: PT TO ROOM FROM LOBBY
[2021-02-05 14:57] LABS: ALANINE AMINOTRANSFERASE 14 U/L (12-78); ALKALINE PHOSPHATASE 80 U/L (45-117); BILIRUBIN,TOTAL 0.5 mg/dL (0.2-1.0); CREATININE 0.65 mg/dL (0.55-1.02); TOTAL PROTEIN 7.4 g/dL (6.4-8.2)
[2021-02-05 15:24] LABS: MICROSCOPIC INDICATED
--- NOTE | 2021-02-05 15:25 | NUR ---
PT TO US [employer]IA [employer] AT THIS TIME.
[2021-02-05 16:11] VITALS: BP 121/74
== END 2021-02-05 16:45 | disposition home or self-care (01) ==
LOC: ED 16:00
DX: O23.41 Unspecified infection of urinary tract in pregnancy, first trimester (principal); Z3A.01 Less than 8 weeks gestation of pregnancy
CPT/HCPCS: 36415; 76700; 76830; 80053; 81001; 83690; 84702; 84703; 85025; 87086; 99285

== ENCOUNTER 2021-02-25 22:26 | Emergency (ER) | payer MEDICAID ==
[2021-02-26 01:30] VITALS: BP 129/59
== END 2021-02-26 02:29 | disposition home or self-care (01) ==
LOC: ED 23:00
DX: O98.511 Other viral diseases complicating pregnancy, first trimester (principal); J02.8 Acute pharyngitis due to other specified organisms; Z20.822 Contact with and (suspected) exposure to COVID-19; R05 Cough; B97.89 Other viral agents as the cause of diseases classified elsewhere; G40.909 Epilepsy, unspecified, not intractable, without status epilepticus; J45.909 Unspecified asthma, uncomplicated; G89.29 Other chronic pain; Z87.891 Personal history of nicotine dependence; Z3A.14 14 weeks gestation of pregnancy
CPT/HCPCS: 36415; 76815; 80048; 81001; 82040; 84702; 85025; 87086; 96360; 99284; J7030; U0003; U0005